=== PATIENT | female | born 1965 | race Caucasian/White ===

== ENCOUNTER 2021-01-07 07:16 | Day surgery (SDC) | payer OTHER ==
[2021-01-01 12:21] VITALS: BMI 30.8
[2021-01-07] MEDS ORDERED: BUPIVACAINE HCL 50 ML ONE (12:41)
[2021-01-07] MEDS ORDERED: MIDAZOLAM HCL 2 MG/2 ML SINGLE DOSE VIAL ONE (12:44)
[2021-01-07] MEDS ORDERED: MORPHINE SULFATE 10 MG/1 ML *VIAL ONE (12:44)
[2021-01-07] MEDS ORDERED: SUCCINYLCHOLINE CHLORIDE 200 MG/10 ML SYRINGE ONE (12:45)
[2021-01-07] MEDS ORDERED: PROPOFOL 20 ML ONE (12:45)
[2021-01-07] MEDS ORDERED: ONDANSETRON 4 MG/2 ML VIAL IVPUSH PRN (13:57)
[2021-01-07] MEDS ORDERED: oxyCODONE HCL 5 MG TABLET PO PRN (13:57)
[2021-01-07] MEDS ORDERED: PROMETHAZINE HCL 25 MG/1 ML VIAL IVPUSH PRN (13:57)
[2021-01-07] MEDS ORDERED: LACTATED RINGERS SOLUTION 1,000 ML IV SCH (14:00)
[2021-01-07] MEDS ORDERED: ACETAMINOPHEN INJECTION 100 ML IVPB ONE (14:31)
[2021-01-07] MEDS ORDERED: ACETAMINOPHEN 1000 MG/100 ML VIAL (NON FORMULARY) IVPB ONE ×2 (14:35→15:30)
[2021-01-07 16:33] VITALS: TEMP 97.1
[2021-01-07 16:37] VITALS: BP 135/79; PULSE 84
== END 2021-01-07 17:25 | disposition home or self-care (01) ==
LOC: FASU 07:16
PROVIDERS: ATTEND Orthopaedic Surgery
PROC: 0QBM4ZZ Excision of Left Tarsal, Percutaneous Endoscopic Approach (ICD-10-PCS; 2021-01-07)
PROC: 0SN Lower Joints, Release (ICD-10-PCS; 2021-01-07)
PROC: 0SBG4ZZ Excision of Left Ankle Joint, Percutaneous Endoscopic Approach (ICD-10-PCS; principal; 2021-01-07 11:00)
DX: M25.672 Stiffness of left ankle, not elsewhere classified (principal); M94.272 Chondromalacia, left ankle and joints of left foot; M75.02 Adhesive capsulitis of left shoulder; M67.272 Synovial hypertrophy, not elsewhere classified, left ankle and foot; M93.272 Osteochondritis dissecans, left ankle and joints of left foot
CPT/HCPCS: 88304-TC; 94760; J0131

== ENCOUNTER 2021-06-17 06:12 | Day surgery (SDC) | payer OTHER ==
[2021-06-14 09:38] VITALS: BMI 33.6
[2021-06-17] MEDS ORDERED: ROCURONIUM BROMIDE 50 MG/5 ML SYRINGE ONE (07:22)
[2021-06-17] MEDS ORDERED: MIDAZOLAM HCL 2 MG/2 ML SINGLE DOSE VIAL ONE ×2 (07:22→08:07)
[2021-06-17] MEDS ORDERED: PROPOFOL 20 ML ONE (07:22)
[2021-06-17] MEDS ORDERED: BUPIVACAINE HCL 100 ML ONE (07:24)
[2021-06-17] MEDS ORDERED: MORPHINE SULFATE 10 MG/1 ML *VIAL ONE (07:43)
[2021-06-17] MEDS ORDERED: ceFAZolin SODIUM 1 GM VIAL ONE (08:22)
[2021-06-17] MEDS ORDERED: ONDANSETRON 4 MG/2 ML VIAL ONE (08:22)
[2021-06-17] MEDS ORDERED: KETOROLAC TROMETHAMINE 30 MG/1 ML VIAL ONE (08:22)
[2021-06-17] MEDS ORDERED: DEXAMETHASONE SOD PHOSPHATE 4 MG/1 ML VIAL ONE (08:22)
[2021-06-17] MEDS ORDERED: oxyCODONE HCL 5 MG TABLET PO PRN (09:23)
[2021-06-17] MEDS ORDERED: ONDANSETRON 4 MG/2 ML VIAL IVPUSH PRN (09:23)
[2021-06-17] MEDS ORDERED: ACETAMINOPHEN 1000 MG/100 ML VIAL IVPB ONE (09:24)
[2021-06-17 11:00] VITALS: BP 115/64; PULSE 75; TEMP 97
== END 2021-06-17 11:00 | disposition home or self-care (01) ==
LOC: FASU 06:12
PROVIDERS: ATTEND Orthopaedic Surgery
PROC: 0SBD4ZZ Excision of Left Knee Joint, Percutaneous Endoscopic Approach (ICD-10-PCS; 2021-06-17)
PROC: 0SBD4ZZ Excision of Left Knee Joint, Percutaneous Endoscopic Approach (ICD-10-PCS; 2021-06-17)
PROC: 0SBD4ZZ Excision of Left Knee Joint, Percutaneous Endoscopic Approach (ICD-10-PCS; 2021-06-17)
PROC: 0SBD4ZZ Excision of Left Knee Joint, Percutaneous Endoscopic Approach (ICD-10-PCS; principal; 2021-06-17 08:31)
DX: M25.662 Stiffness of left knee, not elsewhere classified (principal); S83.242A Other tear of medial meniscus, current injury, left knee, initial encounter; S83.282A Other tear of lateral meniscus, current injury, left knee, initial encounter; M25.862 Other specified joint disorders, left knee; M94.262 Chondromalacia, left knee; M93.262 Osteochondritis dissecans, left knee; M67.262 Synovial hypertrophy, not elsewhere classified, left lower leg; M67.52 Plica syndrome, left knee; X58.XXXA Exposure to other specified factors, initial encounter; Y93.9 Activity, unspecified; Y92.9 Unspecified place or not applicable
CPT/HCPCS: 94760; J0131